=== PATIENT | male | born 1960 | race Hispanic/Latino ===

== ENCOUNTER 2019-08-11 05:50 | Day surgery (SDC) | payer BC ==
[2019-08-07 09:15] LABS: Protime INR 0.97
[2019-08-07 09:16] LABS: Absolute Lymphocytes (CBC) 1.8 K/uL (0.7-4.9); Basophils % 0.7 % (0-1.3); Hematocrit 43.2 % (39.6-49.0); Lymphocytes % 33.5 % (15.3-44.8); MPV 10.2 fL (7.6-11.3); RBC Red Blood Cell Count 4.76 M/uL (4.33-5.43)
--- NOTE | 2019-08-07 09:16 | RAD REPORT ---
EXAM DESCRIPTION: RAD - Chest Pa And Lat (2 Views) - 08/07/2019 9:02 am CLINICAL HISTORY: preop, pending left shoulder rotator cuff surgery COMPARISON: Portable June 2014 TECHNIQUE: Frontal and lateral views of the chest were obtained. FINDINGS: The lungs are clear. Heart size is normal and central vasculature is within normal limit s. No pleural effusion or pneumothorax seen. No acute bony finding noted. No aortic abnormality. IMPRESSION: No acute cardiopulmonary process.
--- OUTSIDE RECORDS SUMMARY | 2019-08-11 05:52 | XMS REPORT ---
:1960 Author Organization [facility] t Address [address] [place] [address] Care Team Providers Name Role Phone Unavailable Unavailable Unavailable Problems Condition Condition Condition Status Onset Resolution Last Treating Co mments Source Name Details Category Date Date Treatment Clinician Date Nontraumat Nontraumat Problem Active C [facility] tear of ic tear of Tanvi kes - left left Memoria rotator rotator l cuff, cuff, Outpati unspecifie unspecifie en t d tear d tear Clinics extent extent Allergies, Adverse Reactions, Alerts This patient has no known allergies or adverse reactions. Medications This patient has no known medications. Procedures This patient has no known procedures. Encounters Start End Encounter Admission Attending Care Care Encounter Source Date/Time Date/Time Type Type Clinicians Facility Department ID 2019-08-01 2019-08-01 Outpatient Veda Mccollumt [id number] [facility] 12:41:00 12:41:00 [facility] Outpati ent Clinics 2019-08-01 2019-08-01 Outpatient Veda Mccollumt [id number] [facility] [address] 11:00:00 11:00:00 [facility] Outpati ent Clinics Results This patient has no known results.
--- OUTSIDE RECORDS SUMMARY | 2019-08-11 05:52 | XMS REPORT ---
:1960 Author Organization [employer] Care Team Providers Name Role Phone Michael Lara Provider Role Unavailable Allergies No Known Allergies Problems Problem Type Condition Code Onset Dates Condition Statu s Problem Nontraumatic tear of left rotator M75.102 Active cuff, unspecified tear extent Medications No Known Medications Results No Known Results Summary Purpose eClinicalWorks Submission
--- OUTSIDE RECORDS SUMMARY | 2019-08-11 05:52 | XMS REPORT ---
:1960 Author Organization [employer] Care Team Providers Name Role Phone Marco Michael Provider Role Unavailable Allergies, Adverse Reactions, Alerts Substance Reaction Event Type N.K.D.A. Info Not Available Non Drug Allergy Problems Problem Type Condition Code Onset Dates Condition Statu s Assessment Pre-operative clearance Z01.818 Acti ve Problem Nontraumatic tear of left rotator M75.102 Active cuff, unspecified tear extent Assessment Pain of left shoulder joint on M25.512 Active movement Assessment Nontraumatic tear of left rotator M75.102 Active cuff, unspecified tear extent Medications No Known Medications Results No Known Results Summary Purpose eClinicalWorks Submission
[2019-08-11] MEDS ORDERED: Ringers Lactate 1,000 ML IV ONE ×2 (06:00→07:31)
[2019-08-11] MEDS ORDERED: CEFAZOLIN/SWI 2gm 2 GM/20 ML SYR ONE (06:00)
[2019-08-11] MEDS ORDERED: LIDOCAINE 2% MPF 5 ML VIAL ONE (06:48)
[2019-08-11] MEDS ORDERED: NS 0.9% VIAL 20 ML ONE (06:48)
[2019-08-11] MEDS ORDERED: ROPLVACAINE HCL 40 ML ONE (06:49)
[2019-08-11] MEDS ORDERED: MIDAZOLAM HCL 2 MG/2 ML INJ ONE (06:49)
[2019-08-11] MEDS ORDERED: FENTANYL CITR 100 MCG/2 ML ONE (06:49)
[2019-08-11] MEDS ORDERED: EPINEPHRINE/PF 1 MG/ML AMP ONE (07:13)
[2019-08-11] MEDS ORDERED: dexAMETHasone 10 MG/ML VIAL ONE (07:22)
[2019-08-11] MEDS ORDERED: ROCURONIUM 50 MG/5 ML VIAL IV ONE (07:22)
[2019-08-11] MEDS ORDERED: propofoL 200 MG/20 ML VIAL IV ONE (07:22)
[2019-08-11] MEDS ORDERED: ONDANSETRON 4 MG/2 ML VIAL ONE (07:23)
[2019-08-11] MEDS ORDERED: KETOROLAC 30 MG/ML INJ ONE (08:06)
[2019-08-11] MEDS ORDERED: NS 0.9% VIAL 10 ML ONE (08:31)
[2019-08-11] MEDS ORDERED: Phenylephrine HCl 10 MG/ML 1 ML VIAL ONE (08:31)
[2019-08-11] MEDS ORDERED: GLYCOPYRROLATE 0.2 MG/ML SYR ONE (09:40)
[2019-08-11] MEDS ORDERED: NEOSTIGMINE 1 MG/ML -5 ML ONE (09:43)
--- NOTE | 2019-08-11 09:56 | P.BOP ---
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
[2019-08-11 10:09] VITALS: O2SAT 100
[2019-08-11 10:44] VITALS: TEMP 98.4
--- NOTE | 2019-08-11 11:02 | RAD REPORT ---
EXAM DESCRIPTION: RAD - Shoulder 1 View - 08/11/2019 10:40 am CLINICAL HISTORY: Right shoulder surgery FINDINGS: Frontal view of the right shoulder was obtained. No fracture or dislocation is seen. Posts urgical changes involve the left shoulder
[2019-08-11] MEDS ORDERED: HYDROCODONE/APAP 7.5/325 MG TAB ONE (11:42)
[2019-08-11 12:19] VITALS: BP 123/79
--- NOTE | 2019-08-12 09:58 | OP ---
Date of Procedure: 08/11/2019 Surgeon: Dilshad Medel MD Preoperative Diagnoses: 1. Recurrent left shoulder rotator cuff tear. 2. Left shoulder acromioclavicular joint arthrosis. Postoperative Diagnoses: 1. Recurrent left shoulder rotator cuff tear. 2. Left shoulder acromioclavicular joint arthrosis. Procedures Performed: 1. Left shoulder arthroscopic revision rotator cuff repair. 2. Left shoulder arthroscopic distal clavicle excision. Anesthesia: General endotracheal. Fluids: Per Anesthesia record. Estimated Blood Loss: Less than 10 mL. Complications: None. Implants: 1. 4.75 mm corkscrew. 2. 4.75 mm SwiveLock. Indication For Procedure: Edmundo is a 58-year-old male who presented to my clinic with pain, weakness, and loss of function of his left shoulder. He has a history of left shoulder rotator cuff repair 3 years ago of his left shoulder. Physical exam findings and MRI findings were consistent with a recurrent left shoulder rotator cuff tear. MRI of his left shoulder also demonstrated edema within the distal clavicle and AC joint consistent with arthrosis. I discussed with the patient at length risks and benefits associated with operative and nonoperative treatment. Given his pain and loss of function, I recommended revision left shoulder rotator cuff repair. Description Of Procedure: After informed consent was obtained, the patient was identified in the preoperative holding area. The left upper extremity was marked. Patient was then brought to the PACU, where he underwent an interscalene block of his left upper extremity performed by Anesthesia. He was then taken to the operating room, transferred to the operating table in the supine fashion, and placed under general endotracheal anesthesia. He was then placed in a beach chair position with his extremities well padded. His left upper extremity was examined. Patient had full range of motion and no instability noted. The left upper extremity was then prepped and draped in usual sterile fashion. A time-out was initiated. The correct patient and procedure were confirmed and identified. Patient had received his preoperative prophylactic antibiotics. Via the posterior portal position, a spinal needle was introduced in the glenohumeral joint and injected the shoulder joint with 30 mL of normal saline to distend the capsule. A stab incision was made over the posterior portal position. An arthroscope was brought in via the posterior portal position. Under direct visualization, an anterior portal was created and a cannula was placed. Diagnostic arthroscopy was performed. Patient was noted to have mild degenerative changes of the inferior humeral head. The anterior and posterior labrum was found to be stable to probe. No loose bodies were found in the axillary pouch. Subscapularis was found to be stable and intact. Superior labrum was also found to be stable and intact. Prior biceps tenotomy and tenodesis were identified. There was obvious recurrent rotator cuff tear with anterior supraspinatus and was retracted near the level of the glenohumeral joint. Under direct visualization, a lateral portal was created and via the lateral portal, an elevator was introduced into the shoulder joint and the undersurface of the rotator cuff was then elevated off the glenoid and scapular neck to aid with repair given the significant retraction. The arthroscope was then brought to the subacromial space and subacromial bursectomy was performed. Scar tissue of the anterior, superior, and posterior aspect of the rotator cuff tear was then debrided with the arthroscopic shaver. Using a pituitary grasper, the tear could be reduced and it was retracted both medially and posteriorly. A bleeding bony bed was created by debriding surface of the greater tuberosity with an arthroscopic shaver. A stab incision was made just lateral to the acromion and a 4.75 mm Arthrex corkscrew was placed lateral to the articular surface. A FastPass scorpion suture passer was used to pass the sutures through the rotator cuff tear from an anterior to posterior fashion and horizontal mattress fashion. For medial row fixation, the sutures were tied and there was reduction of the rotator cuff onto the greater tuberosity. To aid with greater surface area, a lateral row fixation was also selected and two 4.75 mm SwiveLock anchors were placed. Sutures were placed in crisscross fashion, anterior to posterior suture knots. There was adequate reduction of the rotator cuff back to the greater tuberosity. The undersurface of the acromion was was debrided with a radiofrequency ablator and arthroscopic shaver. The AC joint was identified. There were some wear and osteophyte on the end the distal clavicle. An arthroscopic antonia was introduced in the AC joint and a distal clavicle excision was performed using an arthroscopic antonia of approximately 7 mm. Arthroscopic instruments were removed without complication. Wounds were then irrigated thoroughly with normal saline. Subcutaneous tissues were approximated using 2-0 Vicryl. Skin and portals were approximated using 3-0 Monocryl. Sterile dressings were applied. Patient was placed in a shoulder immobilizer, awakened, and transferred to PACU in stable condition. Postoperative Plan: He will be nonweightbearing to his left upper extremity. He will begin physical therapy at 6 weeks postop following the large rotator cuff repair protocol. DIANE/HARDIK Voice ID: [id number] Report ID: [id number] CANDACE
== END 2019-08-11 12:00 | disposition home or self-care (01) ==
LOC: OR 05:50
PROVIDERS: ATTEND Orthopaedic Surgery Sports Medicine
PROC: 0RHK44Z Insertion of Internal Fixation Device into Left Shoulder Joint, Percutaneous Endoscopic Approach (ICD-10-PCS; 2019-08-11)
PROC: 0PBB4ZZ Excision of Left Clavicle, Percutaneous Endoscopic Approach (ICD-10-PCS; 2019-08-11)
PROC: 0LQ24ZZ Repair Left Shoulder Tendon, Percutaneous Endoscopic Approach (ICD-10-PCS; principal; 2019-08-11 07:30)
DX: M75.102 Unspecified rotator cuff tear or rupture of left shoulder, not specified as traumatic (principal); M19.012 Primary osteoarthritis, left shoulder; Z11.59 Encounter for screening for other viral diseases; Z82.49 Family history of ischemic heart disease and other diseases of the circulatory system; Z83.3 Family history of diabetes mellitus
CPT/HCPCS: 85025; 80048; 36415; 85610; 85730; 71046; 73020; 29827; 29824; J2704; J0171; J2370; J2250; J3010; J1100; J2795; J2710; J0690; J7120 ×2; J2405

== ENCOUNTER 2019-10-11 06:23 | Day surgery (SDC) | payer BC ==
--- OUTSIDE RECORDS SUMMARY | 2019-10-11 06:25 | XMS REPORT ---
:1960 Author Organization eClinicalWorks Care Team Providers Name Role Phone Dilshad Medel Provider Role Unavailable Allergies No Known Allergies Problems Problem Type Condition Code Onset Dates Condition Statu s Problem Nontraumatic tear of left rotator M75.102 Active cuff, unspecified tear extent Medications No Known Medications Results No Known Results Summary Purpose eClinicalWorks Submission
--- OUTSIDE RECORDS SUMMARY | 2019-10-11 06:25 | XMS REPORT ---
:1960 Author Organization eClinicalWorks Care Team Providers Name Role Phone Dilshad Medel Provider Role Unavailable Allergies, Adverse Reactions, Alerts Substance Reaction Event Type N.K.D.A. Info Not Available Non Drug Allergy Problems Problem Type Condition Code Onset Dates Condition Statu s Assessment Pain of left shoulder joint on M25.512 Active movement Problem Nontraumatic tear of left rotator M75.102 Active cuff, unspecified tear extent Assessment Nontraumatic tear of left rotator M75.102 Active cuff, unspecified tear extent Medications Medication Code Code Instructions Start End Date Status Dosage System Date Hydrocodone-Ac [facility] [id number] 7.5-325 MG Oral Activ e (Schedule etaminophen II Drug) TAKE 1 TABLET BY MOUTH EVERY 4 6 HOURS NEEDED FOR PAIN Results No Known Results Summary Purpose eClinicalWorks Submission
--- OUTSIDE RECORDS SUMMARY | 2019-10-11 06:25 | XMS REPORT ---
:1960 Author Organization eClinicalWorks Care Team Providers Name Role Phone Dilshad Mdeel Provider Role Unavailable Allergies, Adverse Reactions, Alerts [...] End Date Status Dosage System Date Hydrocodone-Ac [facility] [id number] 7.5-325 MG Oral Activ e (Schedule etaminophen II Drug) TAKE 1 TABLET BY MOUTH EVERY 4 6 HOURS NEEDED FOR PAIN Results No Known Results Summary Purpose eClinicalWorks Submission
--- OUTSIDE RECORDS SUMMARY | 2019-10-11 06:25 | XMS REPORT | Continuity of Care Document ---
:1960 Author Organization [facility] t Address [address] [place] [address] Care Team Providers Name Role Phone Unavailable [...] d tear d tear Clinics extent extent Encounter Encounter Diagnosis Active [facility] - wellness wellness [facility] a examinatio examinatio l n in adult n in adult Ou tpati ent Clinics Encounter Encounter Diagnosis Active C [facility] for for [facility] - screening screening Ming sandhya for other for other l viral viral Outpati diseases diseases ent Clinics Screening Screening Diagnosis Active C [facility] for colon for colon Luke s - cancer cancer Memoria l Outpati ent Clinics Allergies, Adverse Reactions, Alerts This patient has no known allergies or adverse reactions. Medications Ordered Filled Start Stop Current Ordering Indication Dosage Frequency Signature Comments Components Source Medication Medication Date Date Medication? Clinician (SIG) Name Name Hydrocodone Hydrocodone Violetta Yung (Schedule [facility] -[facility] -Acetaminop Medel II Drug) [facility] - hen hen TAKE 1 Memoria TABLET BY l MOUTH Outpati EVERY 4 6 ent HOURS Clinics NEEDED FOR PAIN Procedures This patient has no known procedures. Encounters Start End Encounter Admission Attending Care Care Encounter Source Date/Time Date/Time Type Type Clinicians Facility Department ID 2019-09-29 2019-09-29 Outpatient Veda Calderon [id number] [facility] 10:30:00 10:30:[address] [facility] [facility] Family Medicine l Medicine Outpati ent Clinics 2019-09-18 2019-09-18 [facility] [id number] [address] 09:15:00 09:15:00 [facility] 2019-09-13 2019-09-13 [facility] [id number] [facility] 12:12:00 12:12:00 [facility] 2019-09-11 2019-09-11 [facility] [id number] [facility] 14:05:00 14:05:00 [facility] 2019-09-01 2019-09-01 [facility] [id number] 11:39:00 11:39:00 [facility] 2019-08-31 2019-08-31 [facility] [id number] 09:25:00 09:25:00 [facility] 2019-08-31 2019-08-31 [facility] [id number] 08:45:00 08:45:00 t [facility] 2019-08-17 2019-08-17 [facility] [id number] [facility] 09:30:00 09:30:00 [facility] 2019-08-01 2019-08-01 [facility] [id number] [facility] 12:41:00 12:41:00 t [employer] [facility] 2019-08-01 2019-08-01 [facility] [id number] 11:00:00 11:00:00 t [employer] [facility] Results This patient has no known results.
--- OUTSIDE RECORDS SUMMARY | 2019-10-11 06:26 | XMS REPORT ---
:1960 Author Organization eClinicalWorks Care Team Providers Name Role Phone Reddy Larah Provider Role Unavailable Allergies, Adverse Reactions, Alerts Substance Reaction Event Type N.K.D.A. Info Not Available Non Drug Allergy Problems Problem Type Condition Code Onset Dates Condition Statu s Assessment Encounter for wellness examination Z00.00 Active in adult Problem Nontraumatic tear of left rotator M75.102 Active cuff, unspecified tear extent Assessment Encounter for screening for other Z11.59 Active viral diseases Assessment Screening for colon cancer Z12.11 A ctive Medications No Known Medications Results No Known Results Summary Purpose eClinicalWorks Submission
--- OUTSIDE RECORDS SUMMARY | 2019-10-11 06:26 | XMS REPORT ---
[...] End Date Status Dosage System Date Hydrocodone-Ac [facility] [id number] 7.5-325 MG Oral Activ e (Schedule etaminophen II Drug) TAKE 1 TABLET BY MOUTH EVERY 4 6 HOURS NEEDED FOR PAIN Results No Known Results Summary Purpose eClinicalWorks Submission
[2019-10-11] MEDS ORDERED: Ringers Lactate 1,000 ML IV ONE (06:46)
[2019-10-11] MEDS ORDERED: LIDOCAINE 1% MPF 5 ML VIAL ONE (07:32)
[2019-10-11] MEDS ORDERED: propofoL 200 MG/20 ML VIAL IV ONE ×2 (07:32)
[2019-10-11 09:04] VITALS: TEMP 97.2
[2019-10-11 09:05] VITALS: BP 121/80; O2SAT 98
--- NOTE | 2019-10-11 09:35 | ENDO RPT ---
[address], [address] COLONOSCOPY PROCEDURE REPORT EXAM DATE: 10/11/2019 PATIENT NAME: Edmundo Levin MR #: [id number] BIRTHDATE: 1960 ATTENDING: Ashutosh Bai MD STATUS: outpatient SWORD SWALLOWER: Anjali Kirkpatrick RN and Deepthi Clark RN INDICATIONS: The patient is a 58 yr old Male here for a colonoscopy due to BRBPR PROCEDURE PERFORMED: Colonoscopy MEDICATIONS: Per Anesthesia. ESTIMATED BLOOD LOSS: None CONSENT: The patient understands the risks and benefits of the procedure and understands that these risks include, but are not limited to: sedation, allergic reaction, infection, perforation and/or bleeding. Alternative means of evaluation and treatment include, among others: physical exam, x-rays, and/or surgical intervention. The patient elects to proceed with this endoscopic procedure. DESCRIPTION OF PROCEDURE: During intra-op preparation period all mechanical medical equipment was checked for proper function. Hand hygiene and appropriate measures for infection prevention was taken. Procedure, possible complications, alternatives including, but not limited to possibility of bleeding, perforation, tear, infection, sepsis, need for surgery, need for blood transfusion, were explained to the patient. After the risks, benefits and alternatives of the procedure were thoroughly explained, Informed consent was verified, confirmed and timeout was successfully executed by the treatment team. The patient was placed in the left lateral position. A digital rectal exam was performed and revealed external hemorrhoids. After appropriate level of anesthesia, the scope was passed. The EC-[id number] ([id number]) and EC-[id number] ([id number]) endoscope was introduced through the anus and advanced to the cecum, which was identified by transillumination from the light source, the appendix, and the ileocecal valve. The quality of the prep was fair. The instrument was then slowly withdrawn as the colon was fully examined. Scope withdrawal time was . COLON FINDINGS: Internal and external hemorrhoids were found. Retroflexed views revealed no abnormalities. The scope was then completely withdrawn from the patient and the procedure terminated. ADVERSE EVENTS: There were no complications. IMPRESSIONS: Internal and external hemorrhoids RECOMMENDATIONS: 1. follow-up: office 1-2 week(s) 2. hemorrhoidal hygiene RECALL: Return in 5 year(s) for Colonoscopy. Ashutosh Bai MD eSigned: Ashutosh Bai MD 10/11/2019 9:35 AM cc: Michael Lara MD CPT CODES: ICD9 CODES: PATIENT NAME: Edmundo Levin MR#: [id number]
== END 2019-10-11 08:48 | disposition home or self-care (01) ==
LOC: OR 06:23
PROVIDERS: ATTEND Surgery
PROC: 0DJD8ZZ Inspection of Lower Intestinal Tract, Via Natural or Artificial Opening Endoscopic (ICD-10-PCS; principal; 2019-10-11 07:30)
DX: K64.8 Other hemorrhoids (principal); K64.4 Residual hemorrhoidal skin tags; Z11.59 Encounter for screening for other viral diseases
CPT/HCPCS: 45378; U0002; J2704 ×2; J7120

== ENCOUNTER 2020-04-15 14:43 | Emergency (ER) | payer BC ==
--- OUTSIDE RECORDS SUMMARY | 2020-04-15 14:45 | XMS REPORT | Continuity of Care Document ---
:1960 Author Organization [facility] t Address [address] [place] [address] Care Team Providers Name Role Phone Greg ALCALA, T Attending Clinician Unavailable Lab, Fam Pob I Attending Clinician Unavailable Problems This patient has no known problems. Allergies, Adverse Reactions, Alerts This patient has no known allergies or adverse reactions. Medications Ordered Filled Start Stop Current Ordering Indication Dosage Frequency Signature Comments Components Source Medication Medication Date Date Medication? Clinician (SIG) Name Name Meloxicam Meloxicam 2020-0 2020- No Dilshad [address] [facility] 9-10 10-10 [facility] 00[facility] 00[facility] Meloxicam Meloxicam Yes Dilshad [address] [facility] Clinics Procedures This patient has no known procedures. Encounters Start End Encounter Admission Attending Care Care Encounter Source Date/Time Date/Time Type Type Clinicians Facility Department ID 2020-04-09 2020-04-09 Letter NATHANIEL Garza [id number] 00:00:00 00:00:00 (Out) Deja MIRAMONTES [id number] [facility] [id number] 2020-04-09 2020-04-09 Telephone Lab, [facility] [id number] 00:00:00 00:00:00 Fam Pob I [facility] [id number] [place] [id number] Professio [phone] nal [address] 2020-04-08 2020-04-08 Laboratory Lab, [facility] [id number] 15:39:14 15:59:14 Only Fam [facility] [id number] [place] [id number] Professio [phone] nal 0[address] 2020-03-08 2020-03-08 Outpatient [facility] [id number] [facility] 2020-02-27 2020-02-27 Outpatient [id number] [facility] 2020-02-26 2020-02-26 Outpatient [facility] [id number] [facility] 2020-02-21 2020-02-21 Outpatient [facility] [id number] [facility] 2020-02-07 2020-02-07 Outpatient [facility] [id number] [facility] 2020-02-07 2020-02-07 Outpatient [facility] [id number] [facility] 2020-02-01 2020-02-01 Outpatient [facility] [id number] [facility] 2020-01-01 2020-01-01 Outpatient [facility] [id number] [facility] 2019-12-13 2019-12-13 Outpatient [facility] [id number] [facility] 2019-11-30 2019-11-30 [facility] [id number] 08:30:00 08:30:00 [facility] 2019-11-20 2019-11-20 [facility] [id number] [facility] 10:09:00 10:09:00 [facility] 2019-10-30 2019-10-30 [facility] [id number] 09:00:00 09:00:00 [facility] 2019-10-26 2019-10-26 [facility] [id number] 13:00:00 13:00:00 t [email or web address] [facility] 2019-09-29 2019-09-29 [facility] [id number] 10:30:00 10:30:00 t [email or web address] [facility] 2019-09-18 2019-09-18 [facility] [id number] 09:15:00 09:15:00 [facility] 2019-09-13 2019-09-13 [facility] [id number] 12:12:00 12:12:00 [facility] 2019-09-11 2019-09-11 [facility] [id number] 14:05:00 14:05:00 [facility] 2019-09-01 2019-09-01 [facility] [id number] 11:39:00 11:39:00 [facility] 2019-08-31 2019-08-31 [facility] [id number] 09:25:00 09:25:00 [facility] Clin[facility] 2019-08-31 2019-08-31 Outpatient Veda Calderon [id number] [facility] 08:45:00 08:45:00 [facility] Clinics 2019-08-17 2019-08-17 Outpatient Veda Calderon [id number] [facility] 09:30:00 09:30:00 [facility] Clin[facility] 2019-08-01 2019-08-01 Outpatient Veda Mccollumt [id number] [facility] 12:41:00 12:41:00 t [email or web address] [facility] 2019-08-01 2019-08-01 Outpatient Veda Calderon [id number] [facility] 11:00:00 11:00:00 t [email or web address] [facility] ent Clinics Results This patient has no known results.
--- OUTSIDE RECORDS SUMMARY | 2020-04-15 14:46 | XMS REPORT | Summary of Care ---
:1960 Author Organization [facility] Address [address] [place] [address] Care Team Providers Name Role Phone Michael Lara Primary Care Provider Reason for Visit Reason Comments LAB test only Encounter Details Date Type Department Care Team Description 04/08/2020 Laboratory Only [facility] Family Radha Dennis, CLUB LICENSEE [address] [place], [place] [address] Exposure to Medicine - [facility], Adc Fam Pob I SARS-associated [address] [facility] coronaviru s ([address] Dx) [place] [address] Allergies Not on Filedocumented as of this encounter (statuses as of 04/08/2020) Medications Not on filedocumented as of this encounter (statuses as of 04/08/2020) Active Problems Not on filedocumented as of this encounter (statuses as of 04/08/2020) Social History Tobacco Use Types Packs/Day Years Used Date Never Assessed Sex Assigned at Date Recorded Not on file COVID-19 Exposure Response Date Recorded In the last month, have you been in contact with Yes 04/08/2020 3:55 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 documented as of this encounter Last Filed Vital Signs Not on filedocumented in this encounter Nursing Notes Yajaira Waller MA - 04/08/2020 3:40 PM CSTEdmundo Levin is a 59 year old male here for a Rule Out Covid-19 Nasopharyngeal Swab. Patient educated on plan of care for visit, swabbing technique, risks and benefits of test and length of time to receive results. Verbal consent obtained to perform test. CDC Fact Sheet for Patients provided to patient. All droplet and contact precautions taken with appropriate PPE worn while interacting with patient. - Goggles - N95 Mask - Gloves - Gown RR=14 O2 Sat=98% Patient swabbed using appropriate nasopharyngeal technique, and patient tolerated well. Patient was discharged in stable condition. 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 documented in this encounter Plan of Treatment Name Type Priority Associated Diagnoses Order S chedule COVID-19 (MOLECULAR LAB Routine Exposure to Expected : 04/08/2020, TESTING SARS-associated Expires: 022 NUCLEIC ACID coronavirus AMPLIFICATION) Health Maintenance Due Date Last Done Comments HEPATITIS C (HCV) SCREEN 1960 Depression Screening 1973 DTaP,Tdap,and Td Vaccines (1 - 1980 Tdap) COLON CANCER SCREENING ANNUAL 12/16/2011 FIT/FOBT COLON CANCER SCREENING FIT DNA 12/16/2011 EVERY 3 YEARS COLON CANCER SCREENING 12/16/2011 SIGMOIDOSCOPY EVERY 5 YEARS COLONOSCOPY 12/16/2011 Colorectal Cancer Screening 12/16/2011 Zoster Recombinant Vaccine 12/16/2011 (SHINGRIX) (1 of 2) INFLUENZA VACCINE (#1) 2019 PNEUMOCOCCAL 0-64 YEARS COMBINED Aged Out No longer eligible based on SERIES patient's age to complete this topic documented as of this encounter Results Not on filedocumented in this encounter Visit Diagnoses Diagnosis Exposure to SARS-associated coronavirus - Primary documented in this encounter Additional Health Concerns Infection Onset Date Last Indicated Resolved Time COVID-19 Rule Out 04/08/2020 04/08/2020 documented as of this encounter Insurance Payer Benefit Plan Subscriber ID Effective Dates Phone Address Type / Group [facility] [id number] 2016-Usama [phone] [address] PPO/POS [place] - OUT OF t [id number] [place] [address] documented as of this encounter
--- OUTSIDE RECORDS SUMMARY | 2020-04-15 14:46 | XMS REPORT ---
:1960 Author Organization [facility] Address [address] [place] [address] Care Team Providers Name Role Phone Gianfranco Unavailable [phone] PROBLEMS Type Condition ICD9-CM [id number] Onset Condition SNOMED Code Notes Code Code Dates Status Problem Nontraumatic tear M75.102 Active 32070121386587 09 of left rotator cuff, unspecified tear extent Problem Mixed E78.2 Active [id number] hyperlipidemia ALLERGIES No Known Allergies ENCOUNTERS from 1960 to 2020-03-11 Encounter Location Date Provider Diagnosis [facility] [address] [place] [address] IMMUNIZATIONS No Information SOCIAL HISTORY Tobacco Use: Social History Observation Description Date Details (start date - stop date) Former Smoker Sex Assigned At : Social History Observation Description Sex Assigned At Unknown Alcohol Screen Question Answer Notes Did you have a drink containing alcohol in the past year? No Points 0 Interpretation Negative Tobacco Use/Smoking Question Answer Notes Are you a former smoker Additional Findings: Tobacco Non-User Current non-smoker REASON FOR REFERRAL No Information VITAL SIGNS No information MEDICATIONS Medication SIG (Take, Route, Notes Start Date End Date Status Frequency, Duration) Hydrocodone-Acetaminophe Not-Taking n Suprep Bowel Prep Kit Not -Taking Meloxicam 7.5 MG 1 tablet Orally Once a Active day for 30 PROCEDURES No Information RESULTS No Results REASON FOR VISIT BCBS now out of network for [facility] MEDICAL (GENERAL) HISTORY Type Description Date Surgical History Appendectomy Surgical History Left shoulder arthroscopic rotator cuff repair with open 06/26/2015 subpectoral biceps tenodesis. Left arth roscopic subacromial decompression. Surgical History right shoulder- in [place] 2017 Surgical History Left shoulder arthroscopic revision rota tor cuff repair 08/11/19 Left shoulder arthroscopic distal clavic le excision Surgical History colonoscopy 09/2019 Goals Section No Information Health Concerns No Information MEDICAL EQUIPMENT No Information MENTAL STATUS No Information FUNCTIONAL STATUS No Information ASSESSMENTS No Information PLAN OF TREATMENT Next Appt Details Provider Name:Dilshad Medel, 2020-04-29 0 8:30:00 AM, [address], [place], [address], Provider Name:Michael Lara, 2020-10-04 08:00:00 AM, [address], [place], [address], Provider Name:Michael Lara, 2020-10-04 08:15:00 AM, [address], [address], [place], [address], Insurance Providers Payer Name Payer Payer Insured Name Patient Coverage Covera End Address Phone Relationship to Start Date Damien e Insured [employer] [phone] [place],O self 2019 and Ronnell [id number] [facility] [address]
--- OUTSIDE RECORDS SUMMARY | 2020-04-15 14:46 | XMS REPORT | Summary of Care ---
:1960 Author Organization [facility] Address [address] [place] [address] Care Team Providers Name Role Phone Michael Lara Roshan Primary Care Provider Encounter Details Date Type Department Care Team Description 04/09/2020 Letter (Out) [facility] Deja Garza RN [address] [place] [phone] [place] [phone] Allergies Not on Filedocumented as of this encounter (statuses as of 04/09/2020) Medications Not on filedocumented as of this encounter (statuses as of 04/09/2020) Active Problems Not on filedocumented as of this encounter (statuses as of 04/09/2020) Social History Tobacco Use Types Packs/Day Years Used Date Never Assessed Sex Assigned at Date Recorded Not on file COVID-19 Exposure Response Date Recorded In the last month, have you been in contact with Yes 04/08/2020 3:55 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
--- OUTSIDE RECORDS SUMMARY | 2020-04-15 14:46 | XMS REPORT | Summary of Care ---
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 documented as of this encounter Last Filed Vital Signs Not on filedocumented in this encounter Miscellaneous Notes Telephone Encounter - Deja Garza RN - 04/09/2020 7:34 AM CST Access Center Reviewed results on [employer]. [employer] message sent but not read yet. I spoke with the patient. All questions answered. I encouraged him to read the recent [employer] message, all information reviewed with the patient. Patient Release Status: This result is viewable by the patient in [employer]. Last viewed in [employer]: 04/09/2020 7:25 AM By: Edmundo Levin Result Information Flag: AbnormalAbnormal Status: Final result (Collected: 04/08/2020 15:39) Provider Status: Open Contains abnormal data COVID-19 (MOLECULAR TESTING NUCLEIC ACID AMPLIFICATION) Order: [id number] Status: Final result Visible to patient: Yes (MyChart) Dx: Exposure to SARS-associated coronavirus Specimen Information: NASOPHARYNGEAL SWAB Component Ref Range & Units 1d ago SARS-CoV-2 NAAT Not Detected PositiveAbnormal Deja Waters elephone Encounter - Trish Barrios - 04/09/2020 7:24 AM CSTPatient is calling to discuss covid results. 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
[2020-04-15] MEDS ORDERED: HYDROCODONE/CHLORPHEN 5 ML/OSYR ONE (16:17)
--- NOTE | 2020-04-15 16:31 | RAD REPORT ---
EXAM DESCRIPTION: RAD - Chest Single View - 04/15/2020 4:16 pm CLINICAL HISTORY: COUGH, COVID positive COMPARISON: Two view chest July 2019 TECHNIQUE: AP portable chest image was obtained 04/15/2020 4:16 pm . FINDINGS: Lungs are clear. No specific findings to indicate COVID-19 pneumonia. Heart and vasculatur e are normal. No measurable pleural effusion and no pneumothorax. No acute bony abnormality seen. No acute aortic findings suspected. IMPRESSION: No acute cardiopulmonary process. No significant change from comparison study.
--- NOTE | 2020-04-15 16:37 | EDPHYS ---
Physician Documentation [facility] Name: Edmundo Levin Age: 59 yrs Sex: Male : 1960 Arrival Date: 04/15/2020 Time: 14:50 Bed 27 Private MD: ED Physician Gama Bridges HPI: 04/15 16:36 This 59 yrs old Male presents to ER via Ambulatory with complaints of Cough, kb COVID+. 16:36 The patient or guardian reports cough. Onset: The symptoms/episode began/occurred last kb week. Severity of symptoms: At their worst the symptoms were mild, moderate, in the emergency department the symptoms are unchanged. Modifying factors: The symptoms are alleviated by nothing, the symptoms are aggravated by nothing. Associated signs and symptoms: The patient has no apparent associated signs or symptoms. The patient has not experienced similar symptoms in the past. The patient has not recently seen a physician. Historical: - Allergies: 14:58 No Known Allergies; tw2 - Home Meds: 14:58 None [Active]; tw2 - PMHx: 14:58 None; tw2 - PSHx: 14:58 left wrist surgery; Appendectomy; tw2 - Immunization history:: Adult Immunizations. - Social history:: Smoking status: Patient denies any tobacco usage or history of. ROS: 16:35 Constitutional: Negative for fever, chills, and weight loss, ENT: Negative for injury, kb pain, and discharge, Cardiovascular: Negative for chest pain, palpitations, and edema, Abdomen/GI: Negative for abdominal pain, nausea, vomiting, diarrhea, and constipation, Back: Negative for injury and pain, MS/Extremity: Negative for injury and deformity, Skin: Negative for injury, rash, and discoloration, Neuro: Negative for headache, weakness, numbness, tingling, and seizure. 16:35 Respiratory: Positive for cough, Negative for dyspnea on exertion, hemoptysis, orthopnea, pleurisy, shortness of breath, sputum production, wheezing. Exam: 16:35 Constitutional: This is a well developed, well nourished patient who is awake, alert, kb and in no acute distress. Head/Face: Normocephalic, atraumatic. Chest/axilla: Normal chest wall appearance and motion. Nontender with no deformity. No lesions are appreciated. Cardiovascular: Regular rate and rhythm with a normal S1 and S2. No gallops, murmurs, or rubs. Normal PMI, no JVD. No pulse deficits. Respiratory: Lungs have equal breath sounds bilaterally, clear to auscultation and percussion. No rales, rhonchi or wheezes noted. No increased work of breathing, no retractions or nasal flaring. Abdomen/GI: Soft, non-tender, with normal bowel sounds. No distension or tympany. No guarding or rebound. No evidence of tenderness throughout. Skin: Warm, dry with normal turgor. Normal color with no rashes, no lesions, and no evidence of cellulitis. MS/ Extremity: Pulses equal, no cyanosis. Neurovascular intact. Full, normal range of motion. Neuro: Awake and alert, GCS 15, oriented to person, place, time, and situation. Cranial nerves II-XII grossly intact. Motor strength 5/5 in all extremities. Sensory grossly intact. Cerebellar exam normal. Normal gait. Vital Signs: 14:55 BP 131 / 89; Pulse 94; Resp 19; Temp 98.9(TE); Pulse Ox 97% on R/A; Weight 78.93 kg tw2 (R); Height 5 ft. 6 in. (167.64 cm); 16:30 Pulse 88; Resp 16; Pulse Ox 100% on R/A; hb 14:55 Body Mass Index 28.08 (78.93 kg, 167.64 cm) tw2 MDM: 15:44 Patient medically screened. kb 16:34 Data reviewed: vital signs, nurses notes. Data interpreted: Pulse oximetry: on room air kb is 97 %. Interpretation: normal. Counseling: I had a detailed discussion with the patient and/or guardian regarding: the historical points, exam findings, and any diagnostic results supporting the discharge/admit diagnosis, radiology results, the need for outpatient follow up, a family practitioner, to return to the emergency department if symptoms worsen or persist or if there are any questions or concerns that arise at home. 04/15 14:58 Order name: Chest Single View XRAY; Complete Time: 16:34 kb Administered Medications: 16:06 Drug: Tussionex Pennkinetic ER 5 ml Route: PO; tw2 Disposition: 19:02 Co-signature as Attending Physician, Gama Bridges MD. rn Disposition: 04/15/20 16:37 Discharged to Home. Impression: Coronavirus infection, unspecified. - Condition is Stable. - Discharge Instructions: Viral Respiratory Infection, Obdm-Sg-Hhhj, COVID-19. - Prescriptions for Tessalon Perles 100 mg Oral Capsule - take 1 capsule by ORAL route every 8 hours As needed; 15 capsule. - Medication Reconciliation Form, Thank You Letter, Antibiotic Education, Prescription Opioid Use form. - Follow up: Emergency Department; When: As needed; Reason: Worsening of condition. Follow up: Private Physician; When: 2 - 3 days; Reason: Recheck today's complaints, Continuance of care, Re-evaluation by your physician. Signatures: Dispatcher [employer] EDMS Latoya Freeman, HEALTH COORDINATOR-C HEALTH COORDINATOR-Ckb Gama Bridges MD MD rn Wise, Tara, RN RN tw2 Corrections: (The following items were deleted from the chart) 16:45 16:37 04/15/2020 16:37 Discharged to Home. Impression: Coronavirus infection, tw2 unspecified. Condition is Stable. Forms are Medication Reconciliation Form, Thank You Letter, Antibiotic Education, Prescription Opioid Use. Follow up: Emergency Department; When: As needed; Reason: Worsening of condition. Follow up: Private Physician; When: 2 - 3 days; Reason: Recheck today's complaints, Continuance of care, Re-evaluation by your physician. kb
--- NOTE | 2020-04-15 16:37 | ER ---
Nurse's Notes [facility] Name: Edmundo Levin Age: 59 yrs Sex: Male : 1960 Arrival Date: 04/15/2020 Time: 14:50 Bed 27 Private MD: Diagnosis: Coronavirus infection, unspecified Presentation: 04/15 14:55 Chief complaint: Patient states: i tested POSTIVE for COVID last Wednesday and i cant get tw2 rid of the cough, and when i cough i get a pressure on my forehead, denies sob. Coronavirus screen: cough unrelated to allergies, Client presents with at least one sign or symptom that may indicate coronavirus-19. Standard/surgical mask placed on the client. Provider contacted for isolation considerations. Client reports previous positive COVID test result. Date of collection: April 08, 2020. Ebola Screen: Patient denies travel to an Ebola-affected area in the 21 days before illness onset. Initial Sepsis Screen: Does the patient meet any 2 criteria? HR > 90 bpm. Does the patient have a suspected source of infection? No. Patient's initial sepsis screen is negative. Risk Assessment: Do you want to hurt yourself or someone else? Patient reports no desire to harm self or others. Onset of symptoms was April 15, 2020. 14:55 Method Of Arrival: Ambulatory tw2 14:55 Acuity: WILLIAN 4 tw2 Triage Assessment: 14:58 General: Appears in no apparent distress. slender, well groomed, Behavior is calm, tw2 cooperative, appropriate for age. Pain: Denies pain. Respiratory: Reports cough that is Denies shortness of breath. Historical: - Allergies: 14:58 No Known Allergies; tw2 - Home Meds: 14:58 None [Active]; tw2 - PMHx: 14:58 None; tw2 - PSHx: 14:58 left wrist surgery; Appendectomy; tw2 - Immunization history:: Adult Immunizations. - Social history:: Smoking status: Patient denies any tobacco usage or history of. Screenin:43 Abuse screen: Denies threats or abuse. Denies injuries from another. Nutritional hb screening: No deficits noted. Tuberculosis screening: No symptoms or risk factors identified. Fall Risk None identified. Assessment: 15:43 General: Appears in no apparent distress. Behavior is calm, cooperative. Pain: Pain hb currently is 3 out of 10 on a pain scale. Neuro: Level of Consciousness is awake, alert, obeys commands, Oriented to person, place, time, situation. Cardiovascular: Capillary refill < 3 seconds Patient's skin is warm and dry. Respiratory: Reports cough that is non-productive, Respiratory effort is even, unlabored, Respiratory pattern is regular, symmetrical. GI: No signs and/or symptoms were reported involving the gastrointestinal system. : No signs and/or symptoms were reported regarding the genitourinary system. EENT: No signs and/or symptoms were reported regarding the EENT system. Derm: Skin is pink, warm \T\ dry. Musculoskeletal: No signs and/or symptoms reported regarding the musculoskeletal system. 16:06 Reassessment: xray at bedside at this time. tw2 16:30 Reassessment: Patient appears in no apparent distress at this time. Patient and/or hb family updated on plan of care and expected duration. Pain level reassessed. Patient is alert, oriented x 3, equal unlabored respirations, skin warm/dry/pink. Vital Signs: 14:55 BP 131 / 89; Pulse 94; Resp 19; Temp 98.9(TE); Pulse Ox 97% on R/A; Weight 78.93 kg tw2 (R); Height 5 ft. 6 in. (167.64 cm); 16:30 Pulse 88; Resp 16; Pulse Ox 100% on R/A; hb 14:55 Body Mass Index 28.08 (78.93 kg, 167.64 cm) tw2 ED Course: 14:50 Patient arrived in ED. am4 14:57 Triage completed. tw2 14:58 Latoya Freeman FNP-C is PHCP. kb 14:58 Gama Bridges MD is Attending Physician. kb 14:58 Arm band placed on. tw2 15:43 Rhonda Zhang, FREDRICK is Primary Nurse. hb 15:43 Patient has correct armband on for positive identification. Bed in low position. Call hb light in reach. Side rails up X 1. 16:15 Chest Single View XRAY In Process Unspecified. EDMS 16:45 No provider procedures requiring assistance completed. Patient did not have IV access tw2 during this emergency room visit. Administered Medications: 16:06 Drug: Tussionex Pennkinetic ER 5 ml Route: PO; tw2 Outcome: 16:37 Discharge ordered by MD. duvall 16:45 Discharged to home ambulatory, with significant other. tw2 16:45 Condition: stable 16:45 Discharge instructions given to patient, significant other, Instructed on discharge instructions, follow up and referral plans. medication usage, Demonstrated understanding of instructions, follow-up care, medications, Prescriptions given X 1. 16:45 Patient left the ED. tw2 Signatures: Dispatcher [employer] EDLatoya York, ANJALI-Norman ALBA-Rhonda Lin, RN RN Fina Weaver RN RN tw2 Danielle Bai 4
[2020-04-15 16:49] VITALS: BP 131/89; TEMP 98.9; O2SAT 97
== END 2020-04-15 16:45 | disposition home or self-care (01) ==
LOC: ER 14:43
DX: U07.1 COVID-19 (principal)
CPT/HCPCS: 71045; 99283